=== PATIENT | male | born 1995 | race Two or more races ===

== ENCOUNTER 2022-08-24 19:28 | Emergency (ER) | payer OTHER ==
[~2022-08-24] VITALS: Ht 175.3 cm; Wt 187.0 kg
[2022-08-24 20:10] VITALS: BP 134/98
== END 2022-08-24 20:20 | disposition left against medical advice (07) ==
LOC: EMS 19:30
DX: S02.609B Fracture of mandible, unspecified, initial encounter for open fracture (principal); S00.83XA Contusion of other part of head, initial encounter; S50.311A Abrasion of right elbow, initial encounter; Y04.8XXA Assault by other bodily force, initial encounter; Y93.89 Activity, other specified; Y92.89 Other specified places as the place of occurrence of the external cause; Y99.8 Other external cause status
CPT/HCPCS: 99281; Z7502